=== PATIENT | male | born 1945 | race Caucasian/White ===

== ENCOUNTER 2017-06-10 14:14 | Emergency (ER) | payer OTHER, BC ==
[2017-06-10 14:21] VITALS: BP 105/67; PULSE 93; TEMP 97.4; BMI 31.8
== END 2017-06-10 17:46 | disposition left against medical advice (07) ==
LOC: JER 14:14
DX: Z53.21 Procedure and treatment not carried out due to patient leaving prior to being seen by health care provider (principal)
CPT/HCPCS: 99281-25

== ENCOUNTER 2020-07-15 04:17 | Emergency (ER) | payer OTHER, BC ==
[2020-07-15 04:50] VITALS: BMI 44.8
[2020-07-15 04:52] VITALS: BP 98/60; PULSE 94
== END 2020-07-15 07:05 | disposition expired ==
LOC: JER 04:17
DX: R10.9 Unspecified abdominal pain (principal); R41.82 Altered mental status, unspecified
CPT/HCPCS: 70450-TC; 99284-25; C9803; U0003